=== PATIENT | male | born 1965 | race Caucasian/White ===

== ENCOUNTER 2024-11-18 11:11 | Emergency (ER) | payer SELFPAY ==
[2024-11-18 12:05] LABS: Absolute Basophils 0.1 K/uL (0-0.5); Absolute Eosinophils 0.1 K/uL (0-0.5); Absolute Lymphocytes (CBC) 2.5 K/uL (0.7-4.9); Absolute Monocytes 0.4 K/uL (0.1-1.3); Eosinophils % 1.1 % (0-4.4); Hematocrit 43.5 % (39.6-49.0); Hemoglobin 15.1 g/dL (13.6-17.9); Lymphocytes % 42.1 % (15.3-44.8); MCH 30.5 pg (27.0-35.0); MCHC 34.8 g/dL (32.0-36.0); MCV 87.7 fL (80-100); MPV 8.7 fL (7.6-11.3); Monocytes % 6.2 % (3.3-12.3); Neutrophils % 49.6 % (41.7-73.7); Nucleated Red Blood Cells % 0.1 % (0-0); Platelets 234 thou/uL (152-406); RBC Red Blood Cell Count 4.96 M/uL (4.33-5.43); Red Cell Distribution Width 13.9 % (12.1-15.2)
[2024-11-18 12:20] LABS: Albumin 3.9 g/dL (3.4-5.0); Anion Gap 7.9 mEq/L (5.0-15.0); Bilirubin Total 0.4 mg/dL (0.2-1.0); Globulin 4.1 g/dL (2.3-3.5); Potassium 3.9 mEq/L (3.5-5.1)
--- NOTE | 2024-11-18 13:09 | RAD REPORT ---
EXAMINATION: CT ABDOMEN AND PELVIS WITH CONTRAST CLINICAL INDICATION: Male, 59 years old.right inguinal hernia pain TECHNIQUE: CT abdomen and pelvis was performed, after the administration of IV contrast, as per [facility] protocol. Axial, sagittal and coronal reconstructions were obtained. One or more of the following dose reduction techniques were used: Automated exposure control, adjustment of the mA and/o r kV according to patient size, and/or iterative reconstruction. Unless otherwise specified, incidental findings do not require dedicated imaging follow-up. [id number]. COMPARISON: No prior exam. FINDINGS: LOWER CHEST: Dependent atelectasis. No significant pericardial effusion. UPPER GI: Abnormal enhancement identified at the peripyloric region and proximal duodenum. LIVER: No significant focal abnormality. GALLBLADDER/BILE DUCTS: No biliary ductal dilatation.? PANCREAS: No mass, ductal dilation, or osvaldo-pancreatic fluid. SPLEEN: Unremarkable. ADRENALS: No adrenal masses. KIDNEYS AND URETERS: No hydronephrosis.No suspicious renal mass. ABDOMINAL AORTA AND OTHER VESSELS: Moderate atherosclerotic changes without aortic aneurysm. PERITONEUM: No abnormal free fluid. No free air. LYMPH NODES: No pathologic lymphadenopathy. ABDOMINAL WALL: Fat-containing right greater than left inguinal hernias. SMALL BOWEL/COLON: Small bowel has normal course and caliber. No colonic wall thickening or pericolon ic inflammatory changes.Normal appendix. URINARY BLADDER: Mild stranding along the right anterolateral aspect of the bladder possibly represen ting some inflammation. REPRODUCTIVE ORGANS: No pathologic process. MUSCULOSKELETAL: No acute or suspicious osseous abnormality. ADDITIONAL FINDINGS: None. IMPRESSION: Mild stranding along the right anterolateral aspect of the bladder. This may have been pulled into th e right inguinal hernia and subsequently retracted. Small to moderate right fat-containing inguinal hernia and small fat-containing left inguinal hernia without complicating features.. Abnormal enhancement at the peripyloric region/proximal duodenum though the this area is is underdist ended and not well evaluated. Endoscopy could be considered for further evaluation..
--- NOTE | 2024-11-18 13:34 | ER ---
Nurse's Notes [facility] Name: Lele Shaikh Age: 59 yrs Sex: Male : 1965 Arrival Date: 11/18/2024 Time: 11:11 Bed 15 Private MD: Diagnosis: Bilateral inguinal hernia, without obstruction or gangrene, recurrent Presentation: 11/18 11:22 Chief complaint: Patient states: right inguinal hernia , started becoming painful X 6 iw months , last week the pain has gotten worse. Coronavirus screen: At this time, the client does not indicate any symptoms associated with coronavirus-19. Ebola Screen: No symptoms or risks identified at this time. Initial Sepsis Screen: Does the patient meet any 2 criteria? No. Patient's initial sepsis screen is negative. Does the patient have a suspected source of infection? No. Patient's initial sepsis screen is negative. Risk Assessment: Do you want to hurt yourself or someone else? Patient reports no desire to harm self or others. 11:22 Method Of Arrival: Ambulatory iw 11:23 Onset of symptoms. iw 11:23 Acuity: DAVID 3 iw - Infectious Disease History:: Denies. - Family history:: not pertinent. - Hospitalizations: : No recent hospitalization is reported. Screenin:54 [facility] ED Fall Risk Assessment (Adult) History of falling in the last 3 months, mb9 including since admission No falls in past 3 months (0 pts) Confusion or Disorientation No (0 pts) Intoxicated or Sedated No (0 pts) Impaired Gait No (0 pts) Mobility Assist Device Used No (0 pt) Altered Elimination No (0 pt) Score/Fall Risk Level 0 - 2 = Low Risk Oriented to surroundings, Maintained a safe environment, Educated pt \T\ family on fall prevention, incl call for assistance when getting out of bed. Abuse screen: Denies threats or abuse. Nutritional screening: No deficits noted. Tuberculosis screening: No symptoms or risk factors identified. Assessment: 11:52 General: Appears in no apparent distress. Behavior is calm, cooperative. Pain: mb9 Complains of pain in pelvis Pain radiates to right groin Quality of pain is described as throbbing. Neuro: Weston Agitation-Sedation Scale (RASS): 0 - Alert and Calm Level of Consciousness is awake, alert, obeys commands, Oriented to person, place, time, situation, Appropriate for age. Cardiovascular: Patient's skin is warm and dry. Respiratory: Airway is patent Respiratory effort is even, unlabored, Respiratory pattern is regular, symmetrical. GI: Abdomen is round non-distended, Bowel sounds present X 4 quads. : No signs and/or symptoms were reported regarding the genitourinary system. EENT: No signs and/or symptoms were reported regarding the EENT system. Derm: Skin is pink, warm \T\ dry. Musculoskeletal: Range of motion: intact in all extremities. 13:56 Reassessment: No changes from previously documented assessment. Patient and/or family mb9 updated on plan of care and expected duration. Pain level reassessed. Patient is alert, oriented x 3, equal unlabored respirations, skin warm/dry/pink. Vital Signs: 11:22 BP 160 / 94; Pulse 77; Resp 16; Temp 97.1; Pulse Ox 99% on R/A; iw 13:56 BP 155 / 89; Pulse 71; Resp 16; Pulse Ox 100% on R/A; mb9 ED Course: 11:18 Patient arrived in ED. mr 11:19 Seth Patel MD is Attending Physician. rn 11:23 Triage completed. iw 11:32 Violette Dale, SHAGUFTA is Primary Nurse. mb9 11:52 Arm band placed on. mb9 11:53 Placed in gown. Bed in low position. Call light in reach. Side rails up X 1. Provided mb9 Education on: press call light if needing anything. Client placed on continuous cardiac and pulse oximetry monitoring. NIBP monitoring applied. 11:55 Initial lab(s) drawn, by me, sent to lab. Inserted saline lock: 20 gauge in right mb9 antecubital area, using aseptic technique. Blood collected. Flushed with 10 mL NS. 11:55 No provider procedures requiring assistance completed. mb9 13:00 CT Abd/Pelvis - IV Contrast Only In Process Unspecified. EDMS 13:33 Roscoe Jane MD is Referral Physician. rn 13:56 IV discontinued, intact, bleeding controlled, No redness/swelling at site. Pressure mb9 dressing applied. Administered Medications: No medications were administered Medication: 11:54 VIS not applicable for this client. mb9 Outcome: 13:33 Discharge ordered by . rn 13:56 Discharged to home ambulatory, mb9 13:56 Condition: stable 13:56 Discharge instructions given to patient, Instructed on discharge instructions, follow up and referral plans. Demonstrated understanding of instructions, follow-up care, medications, Prescriptions given X 1, 13:57 Patient left the ED. mb9 Signatures: Dispatcher [employer] EDViolette Segovia, Reg Vitor mr Graciela Faust, Seth Romo RN, MD MD rn Wilkerson, Mary Beth, RN RN mb9
--- NOTE | 2024-11-18 13:35 | EDPHYS ---
Physician Documentation [facility] Name: Lele Shaikh Age: 59 yrs Sex: Male : 1965 Arrival Date: 11/18/2024 Time: 11:11 Bed 15 Private MD: ED Physician Seth Patel HPI: 11/18 12:10 This 59 yrs old Male presents to ER via Ambulatory with complaints of Hernia. rn 12:10 Patient reports long-term bulge and discomfort in the right inguinal region, suspected rn to be a hernia. Does not extend into scrotum. No bowel or bladder issues. No blood in stool. No recent trauma. No vomiting. No fever.. - Infectious Disease History:: Denies. - Family history:: not pertinent. - Hospitalizations: : No recent hospitalization is reported. ROS: 12:10 Constitutional: Negative for fever, chills, and weight loss, Cardiovascular: Negative rn for chest pain, palpitations, and edema, Respiratory: Negative for shortness of breath, cough, wheezing, and pleuritic chest pain, Abdomen/GI: Positive for right inguinal discomfort : Negative for injury, bleeding, discharge, and swelling, Exam: 12:10 Constitutional: This is a well developed, well nourished patient who is awake, alert, rn and in no acute distress. Abdomen/GI: Soft, nontender, no evidence of hernia at this time. Nothing in the inguinal canal. Vital Signs: 11:22 BP 160 / 94; Pulse 77; Resp 16; Temp 97.1; Pulse Ox 99% on R/A; iw 13:56 BP 155 / 89; Pulse 71; Resp 16; Pulse Ox 100% on R/A; mb9 MDM: 11:19 Medical Screening Exam initiated rn 13:28 Differential Diagnosis . rn 13:31 Data reviewed: vital signs, nurses notes, lab test result(s), radiologic studies, CT rn scan, and as a result, I will discharge patient. Counseling: I had a detailed discussion with the patient and/or guardian regarding the historical points, exam findings, and any diagnostic results supporting the discharge/admit diagnosis, lab results, radiology results, the need for outpatient follow up, to return to the emergency department if symptoms worsen or persist or if there are any questions or concerns that arise at home. Response to treatment: the patient's symptoms have markedly improved after treatment, and as a result, I will discharge patient. ED course: CT shows bilateral fat-containing inguinal hernias without complication. No evidence of hernia on exam or tenderness. Also discussed findings of enhancement or inflammation of the distal stomach and duodenum, discussed with patient that this could be either ulcer or possible malignancy given weight loss and decreased appetite/anorexia recently. He needs to follow-up with GI and he understands. Will prescribe antacid medication and ask him to follow-up with general surgery for hernias.. 11/18 11:30 Order name: CBC with Diff; Complete Time: 13: rn 11/18 11:30 Order name: CMP; Complete Time: 13: rn 11/18 11:30 Order name: CT Abd/Pelvis - IV Contrast Only; Complete Time: : rn 11/18 11:30 Order name: IV Saline Lock; Complete Time: 11:54 rn 11/18 11:30 Order name: Labs collected and sent; Complete Time: 11:54 rn Administered Medications: No medications were administered Disposition Summary: 11/18/24 13:33 Discharge Ordered Notes: Location: Home rn Problem: an ongoing problem rn Symptoms: have improved rn Condition: Stable rn Diagnosis - Bilateral inguinal hernia, without obstruction or gangrene, recurrent rn Followup: rn - With: Roscoe Jane MD - When: As needed - Reason: Recheck today's complaints, Re-evaluation by your physician Discharge Instructions: - Discharge Summary Sheet rn - Inguinal Hernia, Adult rn Forms: - Medication Reconciliation Form rn - Antibiotic outpatient surgery rn - Prescription Opioid Use rn - Patient Portal Instructions rn - Leadership Thank You Letter rn - Work release form mb9 Prescriptions: - Protonix 40 mg Oral tablet, delayed release (enteric coated) - take 1 tablet ORAL route once daily As needed; 14 tablet; Refills: 0, Product rn Selection Permitted Signatures: Dispatcher [employer] Seth Harrison MD MD rn Wilkerson, Mary Beth RN RN mb9 Corrections: (The following items were deleted from the chart) 11:30 11:30 Abdomen Pelvis W Con+CT.RAD.BRZ ordered. EDMS EDMS
[2024-11-18 16:56] VITALS: TEMP 97.1
[2024-11-18 16:58] VITALS: BP 155/89; O2SAT 100
== END 2024-11-18 13:57 | disposition home or self-care (01) ==
LOC: ER 11:11
DX: K40.21 Bilateral inguinal hernia, without obstruction or gangrene, recurrent (principal)
CPT/HCPCS: 36415; 74177; 80053; 85025; Q9967